=== PATIENT | female | born 1995 | race Caucasian/White ===

== ENCOUNTER 2020-12-31 21:02 | Emergency (ER) | payer OTHER ==
[~2020-12-31] VITALS: Ht 170.2 cm; Wt 71.2 kg
[2020-12-31 21:07] VITALS: BP 145/82
--- NOTE | 2020-12-31 21:10 | NUR ---
To ED bed 11
--- NOTE | 2020-12-31 21:18 | NUR ---
Dr. Zheng with pt for MSE
[2020-12-31 21:25] VITALS: BP 145/82
--- NOTE | 2020-12-31 22:21 | NUR ---
Dr. Zheng with pt for Reassessment.
[2020-12-31] MEDS ORDERED: ACET-8386 PO (22:27)
--- NOTE | 2020-12-31 22:33 | NUR ---
d/c with [facility]. d/c education given. rx of norco given. copies of diagnostic exams given to pt. opportunity to ask questions given and answered.
== END 2020-12-31 22:34 | disposition home or self-care (01) ==
LOC: MED 21:02
DX: S32.2XXA Fracture of coccyx, initial encounter for closed fracture (principal); J45.909 Unspecified asthma, uncomplicated; Z88.0 Allergy status to penicillin; Z79.899 Other long term (current) drug therapy; V89.2XXA Person injured in unspecified motor-vehicle accident, traffic, initial encounter; Y93.89 Activity, other specified; Y92.89 Other specified places as the place of occurrence of the external cause; Y99.8 Other external cause status
CPT/HCPCS: 70450; 72080; 72220; 81002; 81025; 99284

== ENCOUNTER 2021-01-14 15:51 | Emergency (ER) | payer OTHER ==
[~2021-01-14] VITALS: Ht 165.1 cm; Wt 64.0 kg
[~2021-01-14 15:51] MED LIST: ACET-8386 PO
[2021-01-14 15:57] VITALS: BP 101/66
[2021-01-14 16:23] VITALS: BP 115/76
[2021-01-14 17:33] VITALS: BP 115/76
== END 2021-01-14 17:31 | disposition home or self-care (01) ==
LOC: MED 15:51
DX: F41.9 Anxiety disorder, unspecified (principal); F17.210 Nicotine dependence, cigarettes, uncomplicated; J45.909 Unspecified asthma, uncomplicated; Z88.0 Allergy status to penicillin
CPT/HCPCS: 99281